=== PATIENT | female | born 1955 | race Hispanic/Latino ===

== ENCOUNTER → 2019-04-30 | Emergency (ER) | payer OTHER, MEDICARE ==
[~2019-04-30] MED LIST: Iopamidol 370 76% 100 ML VIAL ONE
[2019-04-30 10:18] LABS: #Basophils 0.1 thou/uL (0.0-0.2); #Eosinphils 0.1 thou/uL (0.0-0.7); #Lymphocytes 1.3 thou/uL (1.20-3.40); #Monocytes 0.4 thou/uL (0.11-0.59); #Neutrophils 4.1 thou/uL (1.40-6.50); %Basophils 0.9 % (0.0-1.0); %Eosinophils 1.4 % (0.0-10.0); %Lymphocytes 21.3 % (21.0-51.0); %Monocytes 6.8 % (0.0-10.0); %Neutrophils 69.6 % (42.0-75.0); Hemoglobin 13.9 g/dL (12.0-16.0); Mean Corpuscular HGB CONC 32.5 g/dL (32.0-36.0); Mean Corpuscular Volume 89.2 fL (78.0-98.0); Mean Platelet Volume 6.7 fL (7.4-10.4); Platelet Count 289 thou/uL (130-400); RBC Distribution Width 12.6 % (11.5-14.5); White Blood Cell (WBC) Count 5.9 thou/uL (4.8-10.8)
[2019-04-30 10:23] LABS: Base Excess-Venous 3.5 mmol/L (-2.0 to 3.0); Bicarbonate (HCO3v) 27.8 mmol/L (22.0-28.0); CO2 Tension (PvCO2) 40.1 mmHg (40.0-50.0); Calcium, Ionized 1.08 mmol/L (See Comments:); Chloride 98 mmol/L (98-107); Hemoglobin - Calc 15.8 g/dL (12.0-16.0); Sodium 134 mmol/L (138-145)
[2019-04-30 10:28] LABS: ALT (SGPT) 29 U/L (8-55); AST (SGOT) 25 U/L (5-34); Albumin 3.7 g/dL (3.4-4.8); Alkaline Phosphatase 304 U/L (40-110); Anion Gap 18 mmol/L (10-20); BUN (Urea Nitrogen) 12 mg/dL (9.8-20.1); Bilirubin, Total 0.9 mg/dL (0.2-1.2); Calc. Creatinine Clearance 0 mL/min (70-130); Calcium 9.8 mg/dL (7.8-10.44); Carbon Dioxide 25 mmol/L (23-31); Chloride 95 mmol/L (98-107); Estimated GFR-MDRD 51; Globulin 4.4 g/dL (2.4-3.5); Glucose 389 mg/dL (80-115); Potassium 4.1 mmol/L (3.5-5.1); Protein, Total 8.1 g/dL (6.0-8.3); Sodium 134 mmol/L (136-145)
--- NOTE | 2019-04-30 19:54 | CT ---
CT ANGIO OF THE CHEST: 04/30/19 Comparison is made with an 05/20/18 study. Axial slices were acquired after a bolus of IV contrast. Oblique MIP reformation and coronal images t hrough the chest were then obtained. The patient has known lung cancer. The anterior posterior dimension of the right paratracheal mass at the level of the durga is about 3.4 cm today, compared to 3.1 cm on the prior scan. There does appe ar to be some tumor or debris within the right main bronchus itself. The superior inferior extent of the mass is about 6.5 cm. There is very good opacification of the pulmonary arterial system. No filling defects were seen to paz ggest emboli at this time. Vessels going to portions of the right upper lobe are quite crowded as the re is partial atelectasis of this lobe. There is no sign of aortic aneurysm or dissection. Both coron makenna arteries fill. There is no sign of pericardial effusion. The aerated portions of the lungs was c lear. There are no effusions. No gross areas of bony destruction were appreciated. Scans into the upper abdomen show a portion of the liver which has multiple masses within it, as befo re. There is some sort of drainage tube present in the liver with a small amount of air in the biliar y tree. One of the larger masses in the central portion of the right lobe measures about 5.9 cm in si ze. Overall, the size of the masses seem slightly bigger than on the 2018 scan. IMPRESSION: 1. No evidence of pulmonary embolism. 2. Size of right paratracheal mass is only slightly larger in AP diameter since the last scan. 3. Hepatic metastases seem somewhat larger. 4. Some tumor or debris is noted within the right main bronchus. Findings discussed with Dr. Hernandez at 1109 on 04/30/19. POS: HOME
--- NOTE | 2019-04-30 19:57 | RAD ---
CHEST TWO VIEWS: 04/30/19 Comparison is made with the 03/12/19 study. The heart size remains normal. Elevation of the right hemidiaphragm is slightly greater than before. There seems to be a little more volume loss on the right side than previously. The thickness of densi ty in the right paratracheal region where the patient has a known mass seems slightly greater than february study. IMPRESSION: Small changes since February. No acute infiltrates. POS: HOME
== END ==
LOC: BURERS 09:38
DX: R04.2 Hemoptysis (principal); I10 Essential (primary) hypertension; E11.9 Type 2 diabetes mellitus without complications; Z79.899 Other long term (current) drug therapy; Z79.84 Long term (current) use of oral hypoglycemic drugs
CPT/HCPCS: 71046; 71275; 80053; 82330; 82435; 82803; 83880; 84132; 84295; 84484; 85014; 85025; 85379; 93005; Q9967

== ENCOUNTER 2019-06-21 11:00 | Emergency (ER) | payer OTHER, MEDICARE ==
[2019-06-21] MEDS ORDERED: methylPREDNISolone Sod Succ/PF 125 MG/2 ML VIAL ONE (11:23)
[2019-06-21 11:42] LABS: #Basophils 0.1 thou/uL (0.0-0.2); #Monocytes 0.3 thou/uL (0.11-0.59); #Neutrophils 4.5 thou/uL (1.40-6.50); %Basophils 0.8 % (0.0-1.0); %Eosinophils 0.8 % (0.0-10.0); %Lymphocytes 17.3 % (21.0-51.0); %Monocytes 5.1 % (0.0-10.0); %Neutrophils 75.9 % (42.0-75.0); Hemoglobin 13.8 g/dL (12.0-16.0); Mean Corpuscular HGB CONC 31.5 g/dL (32.0-36.0); Mean Corpuscular Hemoglobin 28.5 pg (27.0-31.0); Mean Corpuscular Volume 90.5 fL (78.0-98.0); Mean Platelet Volume 7.5 fL (7.4-10.4); Platelet Count 300 thou/uL (130-400); RBC Distribution Width 13.1 % (11.5-14.5); Red Blood Cell (RBC) Count 4.84 mill/uL (4.20-5.40); White Blood Cell (WBC) Count 5.9 thou/uL (4.8-10.8)
[2019-06-21 11:59] LABS: ALT (SGPT) 27 U/L (8-55); AST (SGOT) 34 U/L (5-34); Albumin 3.7 g/dL (3.4-4.8); Alkaline Phosphatase 305 U/L (40-110); Anion Gap 20 mmol/L (10-20); BUN (Urea Nitrogen) 8 mg/dL (9.8-20.1); Bilirubin, Total 1.4 mg/dL (0.2-1.2); Calc. Creatinine Clearance 0 mL/min (70-130); Carbon Dioxide 23 mmol/L (23-31); Chloride 90 mmol/L (98-107); Estimated GFR-MDRD 50; Glucose 527 mg/dL (80-115); Potassium 4.7 mmol/L (3.5-5.1); Protein, Total 8.7 g/dL (6.0-8.3); Sodium 128 mmol/L (136-145)
[2019-06-21] MEDS ORDERED: Insulin Regular 300 UNITS/3 ML VIAL ONE (12:22)
--- NOTE | 2019-06-21 12:27 | CT ---
EXAM: CTA of the chest HISTORY: Shortness of breath for one month; malignant neoplasm of the right lung. COMPARISON: 04/30/2019 TECHNIQUE: Multiple contiguous axial images were obtained a CTA of the chest with contrast per pulmon makenna embolism protocol. 3-D oblique MIP reformats and direct coronal reformats were performed. FINDINGS: HEART: Normal in size without focal cardiac abnormality. PULMONARY ARTERIES: Normal in caliber without filling defects to suggest pulmonary emboli. MEDIASTINUM: No hilar or mediastinal lymphadenopathy. LUNGS: There is a mass causing significant narrowing of the right mainstem bronchus. This mass extend s along the right superior mediastinum and there is adjacent atelectasis. Calcifications are associated with the mass. The mass measures 4.4 x 4.3 x 2.5 cm in size. PLEURAL SPACE: No pleural effusion or pneumothorax. CHEST WALL SOFT TISSUES: Unremarkable VISUALIZED OSSEOUS STRUCTURES: Degenerative changes in the spine. VISUALIZED SUBDIAPHRAGMATIC STRUCTURES: Scattered masses in the liver likely represent metastatic dis ease. The patient has a biliary stent. IMPRESSION: 1. No evidence of pulmonary thromboembolism 2. Hepatic metastases 3. Right hilar mass extending into the right mainstem bronchus.
[2019-06-21] MEDS ORDERED: Iopamidol 370 76% 100 ML VIAL ONE (13:52)
== END 2019-06-21 15:39 | disposition home or self-care (01) ==
LOC: BURERS 11:00
DX: R06.00 Dyspnea, unspecified (principal); E11.65 Type 2 diabetes mellitus with hyperglycemia; R22.2 Localized swelling, mass and lump, trunk; I10 Essential (primary) hypertension; Z79.84 Long term (current) use of oral hypoglycemic drugs
CPT/HCPCS: 36415; 36416; 71275; 80053; 83605; 83880; 84443; 84484; 85025; 93005; 96361; 96374; 96375; 96376; J1815; J2930; J7620; Q9967

== ENCOUNTER 2020-06-03 18:06 | Emergency (ER) | payer OTHER, MEDICARE ==
[2020-06-03 18:42] LABS: #Lymphocytes 0.5 thou/uL (1.20-3.40); #Monocytes 0.4 thou/uL (0.11-0.59); #Neutrophils 11.9 thou/uL (1.40-6.50); %Basophils 0.3 % (0.0-1.0); %Eosinophils 0.1 % (0.0-10.0); %Lymphocytes 3.7 % (21.0-51.0); %Monocytes 3.1 % (0.0-10.0); %Neutrophils 92.8 % (42.0-75.0); Mean Corpuscular HGB CONC 31.4 g/dL (32.0-36.0); Mean Corpuscular Hemoglobin 28.7 pg (27.0-31.0); Mean Corpuscular Volume 91.4 fL (78.0-98.0); Mean Platelet Volume 6.7 fL (7.4-10.4); Platelet Count 272 thou/uL (130-400); RBC Distribution Width 15.2 % (11.5-14.5); Red Blood Cell (RBC) Count 3.14 mill/uL (4.20-5.40); White Blood Cell (WBC) Count 12.8 thou/uL (4.8-10.8)
[2020-06-03 18:56] LABS: ALT (SGPT) 27 U/L (8-55); AST (SGOT) 28 U/L (5-34); Albumin 2.7 g/dL (3.4-4.8); Alkaline Phosphatase 483 U/L (40-110); Anion Gap 18 mmol/L (10-20); BUN (Urea Nitrogen) 27 mg/dL (9.8-20.1); Bilirubin, Total 1.8 mg/dL (0.2-1.2); CK (CPK) 47 U/L (29-168); Calc. Creatinine Clearance 0 mL/min (70-130); Calcium 9.2 mg/dL (7.8-10.44); Carbon Dioxide 25 mmol/L (23-31); Chloride 94 mmol/L (98-107); Globulin 6.3 g/dL (2.4-3.5); Glucose 488 mg/dL (80-115); Potassium 3.5 mmol/L (3.5-5.1); Sodium 133 mmol/L (136-145)
[2020-06-03 19:13] LABS: CKMB 1.9 ng/mL (0-6.6)
[2020-06-03] MEDS ORDERED: Aspirin Chewable 81 MG TAB ONE (19:22)
[2020-06-03] MEDS ORDERED: INSULIN REGULAR IN 0.9 % NACL 100 UNIT/100 ML BAG ONE (19:22)
[2020-06-03] MEDS ORDERED: Enoxaparin Sodium 100 MG/ML SYRINGE ONE (20:09)
--- NOTE | 2020-06-03 20:27 | RAD ---
RIGHT FEMUR 06/03/20 AP and lateral views are provided. No fracture or area of bony destruction was seen. The hip joint is normal in width. There may be some minor medial joint space narrowing in the knee. IMPRESSION: No significant finding. POS: HOME
--- NOTE | 2020-06-03 20:29 | RAD ---
LEFT FEMUR 06/03/20 AP and lateral views are provided following trauma. No fracture or area of bony destruction was seen. The hip joint is normal in width and the knee joint shows only minimal medial joint space narrowing and minimal osteophytes. IMPRESSION: No significant finding. POS: HOME
--- NOTE | 2020-06-03 21:09 | CT ---
CT OF THE CERVICAL SPINE 06/03/[address] of the cervical spine was performed. The patient has had recent trauma and there is also a history of lung cancer. No fracture, dislocation, or soft tissue swelling was seen. There is no area of bony destruction. Min or disc space narrowing at C5-C6 is present along with some very minimal anterior osteophytes. There is minor foraminal narrowing on the left at C2-C3 but the other foramina are patent and there is no s ign of central canal stenosis. There may be a little minor central bulging of the C4-C5 disc. The low est slices shows an area of thickening in the right lung apex medially. This has been present on othe r recent chest CT scans associated with her known neoplastic disease of the chest. IMPRESSION: No acute traumatic findings. Preliminary report called to Estela in ER at 1851 on 06/03/20. POS: HOME
--- NOTE | 2020-06-03 21:29 | RAD ---
PORTABLE CHEST 06/03/20 Comparison is made with a 12/12/19 study. I also reviewed a 04/21/20 CT of the chest. There has been improvement in the right paratracheal density since the November study. Part of that densi ty was atelectasis and part was tumor. It is actually much smaller on today's exam. Elevation of the right hemidiaphragm is due to volume loss. It is actually the same or slightly improved from before. The left lung is clear. The heart is normal in size. There is no signs of effusion or pneumothorax. N o gross fractures were identified. IMPRESSION: Chronic changes but no acute findings. The appearance of the chest is actually substantially improved compared to last November. POS: HOME
== END 2020-06-03 20:48 | disposition short-term general hospital (02) ==
LOC: BURERS 18:06
DX: S16.1XXA Strain of muscle, fascia and tendon at neck level, initial encounter (principal); S70.12XA Contusion of left thigh, initial encounter; S70.11XA Contusion of right thigh, initial encounter; I21.4 Non-ST elevation (NSTEMI) myocardial infarction; E11.65 Type 2 diabetes mellitus with hyperglycemia; I10 Essential (primary) hypertension; Z79.84 Long term (current) use of oral hypoglycemic drugs; Z79.899 Other long term (current) drug therapy; W18.30XA Fall on same level, unspecified, initial encounter
CPT/HCPCS: 71045; 72125; 80053; 82550; 82553; 83605; 83880; 84484; 85025; 93005; 94760; 96372; 96374; J1650

== ENCOUNTER 2020-06-09 15:19 | Inpatient (IN) | payer OTHER, MEDICARE ==
[2020-06-09] MEDS ORDERED: Nitroglycerin 0.4 MG TAB (25 Tab Bottle) SL PRN (19:31)
[2020-06-09] MEDS: HYDROcodone/Acetaminophen 5/325 mg Tablet PO PRN (21:33)
[2020-06-09] MEDS: metFORMIN 500 MG TAB PO SCH (21:33)
[2020-06-10] MEDS: HYDROcodone/Acetaminophen 5/325 mg Tablet PO PRN ×3 (03:10→20:36)
[2020-06-10] MEDS: Ibuprofen 800 MG TAB PO PRN ×2 (06:26→23:51)
[2020-06-10] MEDS ORDERED: Polyethylene Glycol 3350 17 GM Packet PO PRN (07:23)
[2020-06-10] MEDS ORDERED: Ondansetron ODT 4 MG TAB PO PRN (07:23)
[2020-06-10] MEDS: Losartan Potassium 50 MG TAB PO SCH (09:00)
[2020-06-10] MEDS: Multivit, Therapeutic 1 TAB PO SCH (09:04)
[2020-06-10] MEDS: metFORMIN 500 MG TAB PO SCH ×3 (09:04→20:33)
[2020-06-10] MEDS: Carvedilol 3.125 MG TAB PO SCH ×2 (09:05→17:14)
[2020-06-10] MEDS: Folic Acid 1 MG TAB PO SCH (09:05)
[2020-06-10] MEDS: Saccharomyces boulardii 250 MG CAP PO SCH (09:05)
[2020-06-10] MEDS: Cyanocobalamin (Vitamin B-12) 1,000 MCG TAB PO SCH (09:05)
[2020-06-10] MEDS: Aspirin 81 mg Enteric Coated Tablet PO SCH (09:10)
[2020-06-10] MEDS ORDERED: Dextrose 5% in Water 1,000 ML IV PRN (18:00)
[2020-06-10] MEDS ORDERED: Dextrose 50% Abboject 50 ML SYRINGE IVP PRN (18:00)
[2020-06-10] MEDS: HumaLOG 300 UNITS/3 ML VIAL SC PRN (18:18)
[2020-06-10 18:30] LABS: Hemoglobin 8.1 g/dL (12.0-16.0); Platelet Count 271 thou/uL (130-400)
[2020-06-10 18:45] LABS: Calc. Creatinine Clearance 76 mL/min (70-130)
[2020-06-10] MEDS: Enoxaparin Sodium 30 MG/0.3 ML SYRINGE SC SCH (20:33)
[2020-06-11 05:07] LABS: #Eosinphils 0.1 thou/uL (0.0-0.7); #Lymphocytes 0.8 thou/uL (1.20-3.40); #Monocytes 0.4 thou/uL (0.11-0.59); #Neutrophils 5.3 thou/uL (1.40-6.50); %Basophils 0.7 % (0.0-1.0); %Eosinophils 1.4 % (0.0-10.0); %Lymphocytes 12.4 % (21.0-51.0); %Monocytes 5.3 % (0.0-10.0); %Neutrophils 80.3 % (42.0-75.0); Hemoglobin 7.6 g/dL (12.0-16.0); Mean Corpuscular HGB CONC 30.1 g/dL (32.0-36.0); Mean Corpuscular Hemoglobin 28.1 pg (27.0-31.0); Mean Corpuscular Volume 93.5 fL (78.0-98.0); Mean Platelet Volume 6.1 fL (7.4-10.4); Platelet Count 270 thou/uL (130-400); RBC Distribution Width 16.9 % (11.5-14.5); White Blood Cell (WBC) Count 6.6 thou/uL (4.8-10.8)
[2020-06-11 05:23] LABS: ALT (SGPT) 16 U/L (8-55); AST (SGOT) 18 U/L (5-34); Albumin 2.1 g/dL (3.4-4.8); Alkaline Phosphatase 497 U/L (40-110); Anion Gap 14 mmol/L (10-20); BUN (Urea Nitrogen) 6 mg/dL (9.8-20.1); Bilirubin, Total 0.9 mg/dL (0.2-1.2); Calc. Creatinine Clearance 81 mL/min (70-130); Calcium 7.5 mg/dL (7.8-10.44); Carbon Dioxide 25 mmol/L (23-31); Chloride 101 mmol/L (98-107); Globulin 5.2 g/dL (2.4-3.5); Glucose 117 mg/dL (80-115); Potassium 3.7 mmol/L (3.5-5.1); Protein, Total 7.3 g/dL (6.0-8.3); Sodium 136 mmol/L (136-145)
[2020-06-11] MEDS: HYDROcodone/Acetaminophen 5/325 mg Tablet PO PRN (07:49)
[2020-06-11] MEDS: Multivit, Therapeutic 1 TAB PO SCH (07:51)
[2020-06-11] MEDS: Saccharomyces boulardii 250 MG CAP PO SCH (07:51)
[2020-06-11] MEDS: Aspirin 81 mg Enteric Coated Tablet PO SCH (07:51)
[2020-06-11] MEDS: Carvedilol 3.125 MG TAB PO SCH ×2 (07:51→17:44)
[2020-06-11] MEDS: Cyanocobalamin (Vitamin B-12) 1,000 MCG TAB PO SCH (07:52)
[2020-06-11] MEDS: Folic Acid 1 MG TAB PO SCH (07:52)
[2020-06-11] MEDS: metFORMIN 500 MG TAB PO SCH ×3 (07:52→20:02)
[2020-06-11] MEDS: Losartan Potassium 50 MG TAB PO SCH (07:52)
[2020-06-11] MEDS: HumaLOG 300 UNITS/3 ML VIAL SC PRN ×2 (12:55→17:44)
[2020-06-11] MEDS: Ibuprofen 800 MG TAB PO PRN (15:56)
[2020-06-11] MEDS: Enoxaparin Sodium 30 MG/0.3 ML SYRINGE SC SCH (20:02)
[2020-06-12] MEDS: HYDROcodone/Acetaminophen 5/325 mg Tablet PO PRN ×2 (03:05→17:39)
[2020-06-12] MEDS: Ibuprofen 800 MG TAB PO PRN ×2 (05:09→22:13)
[2020-06-12 05:26] LABS: Hemoglobin 7.9 g/dL (12.0-16.0); Platelet Count 203 thou/uL (130-400)
[2020-06-12 05:30] LABS: Calc. Creatinine Clearance 82 mL/min (70-130)
[2020-06-12] MEDS: Multivit, Therapeutic 1 TAB PO SCH (09:09)
[2020-06-12] MEDS: Folic Acid 1 MG TAB PO SCH (09:09)
[2020-06-12] MEDS: Carvedilol 3.125 MG TAB PO SCH ×2 (09:09→16:21)
[2020-06-12] MEDS: Aspirin 81 mg Enteric Coated Tablet PO SCH (09:09)
[2020-06-12] MEDS: Cyanocobalamin (Vitamin B-12) 1,000 MCG TAB PO SCH (09:10)
[2020-06-12] MEDS: Losartan Potassium 50 MG TAB PO SCH (09:10)
[2020-06-12] MEDS: metFORMIN 500 MG TAB PO SCH ×3 (09:10→20:19)
[2020-06-12] MEDS: Saccharomyces boulardii 250 MG CAP PO SCH (09:10)
[2020-06-12] MEDS: HumaLOG 300 UNITS/3 ML VIAL SC PRN ×2 (12:23→17:39)
[2020-06-12] MEDS ORDERED: Furosemide 20 MG TAB PO SCH (15:00)
[2020-06-12] MEDS: Enoxaparin Sodium 30 MG/0.3 ML SYRINGE SC SCH (20:19)
[2020-06-13] MEDS: Multivit, Therapeutic 1 TAB PO SCH (08:44)
[2020-06-13] MEDS: Folic Acid 1 MG TAB PO SCH (08:44)
[2020-06-13] MEDS: Saccharomyces boulardii 250 MG CAP PO SCH (08:44)
[2020-06-13] MEDS: Cyanocobalamin (Vitamin B-12) 1,000 MCG TAB PO SCH (08:44)
[2020-06-13] MEDS: metFORMIN 500 MG TAB PO SCH ×3 (08:44→21:02)
[2020-06-13] MEDS: Carvedilol 3.125 MG TAB PO SCH ×2 (08:44→17:24)
[2020-06-13] MEDS: Aspirin 81 mg Enteric Coated Tablet PO SCH (08:44)
[2020-06-13] MEDS: Furosemide 20 MG TAB PO SCH (08:45)
[2020-06-13] MEDS: Losartan Potassium 50 MG TAB PO SCH (08:45)
[2020-06-13] MEDS: HYDROcodone/Acetaminophen 5/325 mg Tablet PO PRN (08:50)
[2020-06-13] MEDS: HumaLOG 300 UNITS/3 ML VIAL SC PRN ×2 (12:47→17:24)
[2020-06-13] MEDS: Ibuprofen 800 MG TAB PO PRN (15:21)
[2020-06-13] MEDS: Enoxaparin Sodium 30 MG/0.3 ML SYRINGE SC SCH (21:02)
[2020-06-14] MEDS: HYDROcodone/Acetaminophen 5/325 mg Tablet PO PRN (04:54)
[2020-06-14 06:17] LABS: Hemoglobin 8.4 g/dL (12.0-16.0); Platelet Count 307 thou/uL (130-400)
[2020-06-14 06:23] LABS: Calc. Creatinine Clearance 77 mL/min (70-130)
[2020-06-14] MEDS: Furosemide 20 MG TAB PO SCH (09:13)
[2020-06-14] MEDS: Aspirin 81 mg Enteric Coated Tablet PO SCH (09:13)
[2020-06-14] MEDS: Saccharomyces boulardii 250 MG CAP PO SCH (09:13)
[2020-06-14] MEDS: Cyanocobalamin (Vitamin B-12) 1,000 MCG TAB PO SCH (09:13)
[2020-06-14] MEDS: Folic Acid 1 MG TAB PO SCH (09:13)
[2020-06-14] MEDS: Multivit, Therapeutic 1 TAB PO SCH (09:13)
[2020-06-14] MEDS: Losartan Potassium 50 MG TAB PO SCH (09:14)
[2020-06-14] MEDS: Carvedilol 3.125 MG TAB PO SCH ×2 (09:14→16:41)
[2020-06-14] MEDS: metFORMIN 500 MG TAB PO SCH ×3 (09:14→20:53)
[2020-06-14] MEDS: HumaLOG 300 UNITS/3 ML VIAL SC PRN ×2 (12:31→16:40)
[2020-06-14] MEDS: Ibuprofen 800 MG TAB PO PRN (15:29)
[2020-06-14] MEDS: Enoxaparin Sodium 30 MG/0.3 ML SYRINGE SC SCH (20:53)
[2020-06-15] MEDS: Ibuprofen 800 MG TAB PO PRN ×2 (04:18→16:15)
[2020-06-15] MEDS: Losartan Potassium 50 MG TAB PO SCH (09:25)
[2020-06-15] MEDS: Multivit, Therapeutic 1 TAB PO SCH (09:25)
[2020-06-15] MEDS: Saccharomyces boulardii 250 MG CAP PO SCH (09:25)
[2020-06-15] MEDS: Folic Acid 1 MG TAB PO SCH (09:25)
[2020-06-15] MEDS: Furosemide 20 MG TAB PO SCH (09:26)
[2020-06-15] MEDS: Carvedilol 3.125 MG TAB PO SCH ×2 (09:26→16:16)
[2020-06-15] MEDS: Aspirin 81 mg Enteric Coated Tablet PO SCH (09:26)
[2020-06-15] MEDS: metFORMIN 500 MG TAB PO SCH ×3 (09:26→21:31)
[2020-06-15] MEDS: Cyanocobalamin (Vitamin B-12) 1,000 MCG TAB PO SCH (09:27)
[2020-06-15] MEDS: HumaLOG 300 UNITS/3 ML VIAL SC PRN ×3 (12:44→21:31)
[2020-06-15 15:21] VITALS: BMI 23.0
[2020-06-15] MEDS ORDERED: Ibuprofen 800 MG TAB PO PRN (17:19)
[2020-06-15] MEDS: Enoxaparin Sodium 30 MG/0.3 ML SYRINGE SC SCH (21:32)
[2020-06-16 05:48] LABS: Hemoglobin 7.7 g/dL (12.0-16.0); Platelet Count 292 thou/uL (130-400)
[2020-06-16 06:44] LABS: Calc. Creatinine Clearance 73 mL/min (70-130)
[2020-06-16] MEDS: Losartan Potassium 50 MG TAB PO SCH (08:54)
[2020-06-16] MEDS: metFORMIN 500 MG TAB PO SCH ×3 (08:54→20:56)
[2020-06-16] MEDS: Saccharomyces boulardii 250 MG CAP PO SCH (08:54)
[2020-06-16] MEDS: Aspirin 81 mg Enteric Coated Tablet PO SCH (08:54)
[2020-06-16] MEDS: Cyanocobalamin (Vitamin B-12) 1,000 MCG TAB PO SCH (08:55)
[2020-06-16] MEDS: Multivit, Therapeutic 1 TAB PO SCH (08:55)
[2020-06-16] MEDS: Folic Acid 1 MG TAB PO SCH (08:55)
[2020-06-16] MEDS: Carvedilol 3.125 MG TAB PO SCH ×2 (08:55→16:26)
[2020-06-16] MEDS: Furosemide 20 MG TAB PO SCH (08:55)
[2020-06-16] MEDS: HumaLOG 300 UNITS/3 ML VIAL SC PRN ×3 (11:58→20:57)
[2020-06-16] MEDS: HYDROcodone/Acetaminophen 5/325 mg Tablet PO PRN ×2 (13:51→23:17)
[2020-06-16] MEDS ORDERED: Promethazine DM 6.25-15mg/5ml 120 ML BOT PO PRN (15:18)
[2020-06-16] MEDS ORDERED: Guaifenesin DM 100-10/5 ML UDCUP PO PRN (17:54)
[2020-06-16] MEDS: Enoxaparin Sodium 30 MG/0.3 ML SYRINGE SC SCH (20:56)
[2020-06-16] MEDS: guaiFENesin/DM ER PO SCH (21:04)
[2020-06-17] MEDS: metFORMIN 500 MG TAB PO SCH ×3 (09:07→20:18)
[2020-06-17] MEDS: Aspirin 81 mg Enteric Coated Tablet PO SCH (09:07)
[2020-06-17] MEDS: Saccharomyces boulardii 250 MG CAP PO SCH (09:07)
[2020-06-17] MEDS: Losartan Potassium 50 MG TAB PO SCH (09:08)
[2020-06-17] MEDS: Multivit, Therapeutic 1 TAB PO SCH (09:08)
[2020-06-17] MEDS: Folic Acid 1 MG TAB PO SCH (09:08)
[2020-06-17] MEDS: Carvedilol 3.125 MG TAB PO SCH ×2 (09:08→16:06)
[2020-06-17] MEDS: Cyanocobalamin (Vitamin B-12) 1,000 MCG TAB PO SCH (09:08)
[2020-06-17] MEDS: Furosemide 20 MG TAB PO SCH (09:08)
[2020-06-17] MEDS: guaiFENesin/DM ER PO SCH ×2 (09:08→20:19)
[2020-06-17] MEDS ORDERED: CHLORASEPTIC SPRAY PO PRN (10:19)
[2020-06-17] MEDS: HumaLOG 300 UNITS/3 ML VIAL SC PRN ×2 (12:14→17:17)
[2020-06-17] MEDS: HYDROcodone/Acetaminophen 5/325 mg Tablet PO PRN (20:17)
[2020-06-17] MEDS: Enoxaparin Sodium 30 MG/0.3 ML SYRINGE SC SCH (20:19)
[2020-06-18 05:11] LABS: Hemoglobin 7.8 g/dL (12.0-16.0); Platelet Count 295 thou/uL (130-400)
[2020-06-18] MEDS: HYDROcodone/Acetaminophen 5/325 mg Tablet PO PRN ×2 (05:19→20:46)
[2020-06-18] MEDS: Saccharomyces boulardii 250 MG CAP PO SCH (08:53)
[2020-06-18] MEDS: Multivit, Therapeutic 1 TAB PO SCH (08:54)
[2020-06-18] MEDS: Aspirin 81 mg Enteric Coated Tablet PO SCH (08:54)
[2020-06-18] MEDS: Furosemide 20 MG TAB PO SCH (08:54)
[2020-06-18] MEDS: Losartan Potassium 50 MG TAB PO SCH (08:54)
[2020-06-18] MEDS: Cyanocobalamin (Vitamin B-12) 1,000 MCG TAB PO SCH (08:55)
[2020-06-18] MEDS: Folic Acid 1 MG TAB PO SCH (08:55)
[2020-06-18] MEDS: Carvedilol 3.125 MG TAB PO SCH ×2 (08:55→16:52)
[2020-06-18] MEDS: metFORMIN 500 MG TAB PO SCH ×3 (08:55→20:47)
[2020-06-18] MEDS: guaiFENesin/DM ER PO SCH ×2 (08:56→20:48)
[2020-06-18] MEDS: HumaLOG 300 UNITS/3 ML VIAL SC PRN ×2 (12:54→17:14)
[2020-06-18] MEDS: Enoxaparin Sodium 30 MG/0.3 ML SYRINGE SC SCH (20:47)
[2020-06-19 06:08] VITALS: BP 134/84; TEMP 98.2
[2020-06-19] MEDS: Aspirin 81 mg Enteric Coated Tablet PO SCH (08:29)
[2020-06-19] MEDS: Carvedilol 3.125 MG TAB PO SCH (08:29)
[2020-06-19] MEDS: Multivit, Therapeutic 1 TAB PO SCH (08:29)
[2020-06-19] MEDS: Saccharomyces boulardii 250 MG CAP PO SCH (08:29)
[2020-06-19] MEDS: Furosemide 20 MG TAB PO SCH (08:30)
[2020-06-19] MEDS: Losartan Potassium 50 MG TAB PO SCH (08:30)
[2020-06-19] MEDS: metFORMIN 500 MG TAB PO SCH (08:30)
[2020-06-19] MEDS: Cyanocobalamin (Vitamin B-12) 1,000 MCG TAB PO SCH (08:31)
[2020-06-19] MEDS: guaiFENesin/DM ER PO SCH (08:32)
[2020-06-19] MEDS: Folic Acid 1 MG TAB PO SCH (08:35)
--- NOTE | 2020-06-21 07:46 | DIS ---
DATE OF ADMISSION: 06/09/2020 DATE OF DISCHARGE: 06/19/2020 ADMISSION DIAGNOSES: Metastatic lung cancer, physical deconditioning, sepsis. SECONDARY DIAGNOSES: Hypertension, type 2 diabetes mellitus. PROCEDURES: None. HOSPITAL COURSE: This is a 65-year-old female, patient of Dr. Christin Mckeon, who transitioned to our [facility] facility to participate with physical therapy and occupational therapy and complete a course of oral antibiotics. She has a history of metastatic lung cancer for which she has been treated by Dr. Abraham, Radiation Oncology, and has had adjuvant therapy via Dr. Quiroz. The patient had been developing progressive weakness resulting in falls at home, which prompted an evaluation in the emergency department. Evaluation there showed sinus tachycardia and nonspecific ST changes with slightly elevated troponin along with an elevated white blood cell count and left shift. The patient was diagnosed with sepsis and treated initially with broad-spectrum antibiotics. Eventually, this was tapered to an oral course of Levaquin, which she has completed at our facility. As for the patient's metastatic lung cancer, complications involving this include a large lesion and trapping of the right main stem bronchus involving blood vessels; due to this, she has very poor air movement to the right lung ulloa. She had transitioned to our facility to participate with PT and OT while putting chemo and radiation on hold for the time being. While at our facility, she was able to successfully improve upon her strength and conditioning. Her functional status has improved overall. She has remained on room air throughout her stay. At times, she does have a cough, which causes post-tussive emesis; otherwise, she has improved without setback. Due to the patient's improvement in functional status, she is now able to transition home where she will stay with family members and has been set up with outpatient therapy for continued care. DISPOSITION: The patient will be discharged home. She may follow up with her primary care provider in 1 week, Dr. Christin Mckeon. She may further follow up with her oncology providers, Dr. Abraham and Dr. Quiroz. She has been set up with outpatient PT and OT. DISCHARGE MEDICATIONS: One new medication will be alprazolam 0.25 mg b.i.d. p.r.n. She will resume her usual home medications which include: 1. Daily multivitamin. 2. Losartan 50 mg daily. 3. Metformin 500 mg t.i.d. 4. Hydrocodone 5/325 q.6 hours p.r.n. 5. Vitamin B12 of 1000 mcg p.o. daily. 6. Nitroglycerin 0.4 mg sublingual q.5 minutes p.r.n. up to 3 doses. 7. Folic acid 1 mg daily. 8. Carvedilol 3.125 mg b.i.d. 9. Aspirin 81 mg daily. Total time spent in preparation and discharge of this patient is greater than 30 minutes. Job ID: [id number] MTDD
== END 2020-06-19 10:40 | disposition home or self-care (01) | DRG 947 ==
LOC: BURMED 18:20
PROVIDERS: ADMIT Family Medicine; ATTEND Family Medicine
DX: R53.81 Other malaise (principal); A41.9 Sepsis, unspecified organism; C34.90 Malignant neoplasm of unspecified part of unspecified bronchus or lung; I10 Essential (primary) hypertension; E11.9 Type 2 diabetes mellitus without complications; Z79.82 Long term (current) use of aspirin; Z79.899 Other long term (current) drug therapy; Z79.84 Long term (current) use of oral hypoglycemic drugs
CPT/HCPCS: 36415; 36416; 80053; 82565; 85014; 85018; 85025; 85049; J1650

== ENCOUNTER 2020-08-10 17:14 | Inpatient (IN) | payer OTHER, MEDICARE ==
[2020-08-10] MEDS ORDERED: Ondansetron PF 4 MG/2 ML Vial ONE (17:39)
[2020-08-10] MEDS ORDERED: Morphine 4 MG/ML VIAL ONE (17:39)
[2020-08-10 17:54] LABS: #Basophils 0.1 thou/uL (0.0-0.2); #Lymphocytes 2.6 thou/uL (1.20-3.40); #Monocytes 0.8 thou/uL (0.11-0.59); #Neutrophils 8.2 thou/uL (1.40-6.50); %Eosinophils 0.3 % (0.0-10.0); %Lymphocytes 22.3 % (21.0-51.0); %Monocytes 6.8 % (0.0-10.0); %Neutrophils 69.6 % (42.0-75.0); Hemoglobin 13.3 g/dL (12.0-16.0); Mean Corpuscular HGB CONC 30.9 g/dL (32.0-36.0); Mean Corpuscular Hemoglobin 28.3 pg (27.0-31.0); Mean Corpuscular Volume 91.6 fL (78.0-98.0); Mean Platelet Volume 5.7 fL (7.4-10.4); Platelet Count 239 thou/uL (130-400); RBC Distribution Width 16.3 % (11.5-14.5); White Blood Cell (WBC) Count 11.7 thou/uL (4.8-10.8)
[2020-08-10 18:08] LABS: ALT (SGPT) 25 U/L (8-55); AST (SGOT) 27 U/L (5-34); Albumin 2.2 g/dL (3.4-4.8); Alkaline Phosphatase 298 U/L (40-110); Anion Gap 17 mmol/L (10-20); BUN (Urea Nitrogen) 9 mg/dL (9.8-20.1); Bilirubin, Total 0.7 mg/dL (0.2-1.2); Calc. Creatinine Clearance 0 mL/min (70-130); Calcium 8.4 mg/dL (7.8-10.44); Carbon Dioxide 21 mmol/L (23-31); Chloride 97 mmol/L (98-107); Globulin 7.4 g/dL (2.4-3.5); Glucose 224 mg/dL (80-115); Potassium 4.7 mmol/L (3.5-5.1); Protein, Total 9.6 g/dL (5.8-8.1); Sodium 130 mmol/L (136-145)
[2020-08-10 18:15] LABS: INR-International Normal Ratio 1.3; Prothrombin Time 16.7 sec (12.0-14.7)
[2020-08-10] MEDS ORDERED: Piperacillin/Tazobactam 4.5 GM VIAL ONE (18:54)
[2020-08-10] MEDS ORDERED: Sodium Chloride 0.9% 100 ML ONE (18:54)
--- NOTE | 2020-08-10 19:20 | CT ---
CT ANGIO OF THE CHEST: Date: 08-10-2020 Comparison: 06-05-2020 FINDINGS: CT angio of the chest showed excellent opacification of the pulmonary arteries. There were no interna l defects to suggest emboli. There is no sign of aortic aneurysm or dissection. The extensive tumor i n the right medial lung and hilum is noted as usual, as well as post obstructive pneumonitis througho ut the right lung. The right lung infiltrates have gotten somewhat worse than they were in May, but there is less pleural fluid here than before. The left lung remains clear. The patient has known hepatic metastases. Some of these seem a little more extensive than before, but the major finding is gas present in several of these, or at least one large one that is multiloculat ed. This was not present before. I would assume that this is tumor underlying necrosis and infection, presumably now with gas forming organisms. The spleen is normal in size. IMPRESSION: 1. No evidence of pulmonary embolism. The right pulmonary artery is significantly encased by karrie or, however. 2. Less pleural effusion on the right than before, but slightly more right lung infiltrate. 3. Gas seen in some hepatic low density areas. I am presuming that this is necrotic tumor that i s now turning into abscess, possibly with gas forming organisms. Findings discussed with Dr. Grady at 1843 on . POS: HOME
[2020-08-10 19:39] LABS: Bilirubin Negative (Negative); Blood, Urine Negative (Negative); Clarity Clear (Clear); Glucose, Urine (Dipstick) Negative (Negative); Ketone, Urine Negative (Negative); Leukocyte Negative (Negative); Nitrite Negative (Negative); Protein, Urine (Dipstick) 30 mg/dL (Neg-Trace); Urobilinogen 0.2 mg/dL (Less than 2)
[2020-08-10 19:44] LABS: Bacteria/HPF 1+ HPF (None Seen); RBC/HPF None Seen HPF (0-3); Squamous Epithelial None Seen HPF (0-3); WBC/HPF None Seen HPF (0-3)
[2020-08-10 20:45] VITALS: BMI 21.6
[2020-08-10] MEDS ORDERED: Albuterol Sulfate 2.5 mg/3 ml Neb NEB PRN (21:50)
[2020-08-10] MEDS ORDERED: ALPRAZolam 0.5 MG TAB PO PRN (21:50)
[2020-08-10] MEDS ORDERED: HYDROcodone/Acetaminophen 5/325 mg Tablet PO PRN (21:52)
[2020-08-10] MEDS ORDERED: Morphine 4 MG/ML VIAL SLOW IVP PRN (21:55)
[2020-08-10] MEDS ORDERED: Carvedilol 3.125 MG TAB PO SCH (22:00)
[2020-08-10] MEDS ORDERED: Ondansetron ODT 4 MG TAB SL PRN (22:00)
[2020-08-10] MEDS ORDERED: Ondansetron PF 4 MG/2 ML Vial IVP PRN (22:00)
[2020-08-10] MEDS ORDERED: Acetaminophen 325 MG TAB PO PRN (22:00)
[2020-08-10] MEDS: Piperacillin/Tazobactam 4.5 GM in Sodium Chloride 0.9% 100 ML IVPB SCH (23:53)
[2020-08-11] MEDS: HYDROcodone/Acetaminophen 5/325 mg Tablet PO PRN ×3 (00:04→17:46)
[2020-08-11 01:42] LABS: SARS-CoV-2 NAA Rapid Test Not Detected (NotDetected)
[2020-08-11] MEDS: Piperacillin/Tazobactam 4.5 GM in Sodium Chloride 0.9% 100 ML IVPB SCH ×4 (05:50→23:00)
[2020-08-11] MEDS ORDERED: metFORMIN 500 MG TAB PO SCH (08:00)
[2020-08-11] MEDS ORDERED: Carvedilol 3.125 MG TAB PO SCH (08:00)
[2020-08-11] MEDS: Vancomycin HCl 750 MG in Sodium Chloride 0.9% 250 ML 250 ML IVPB SCH ×2 (08:46→20:45)
[2020-08-11] MEDS ORDERED: Cyanocobalamin (Vitamin B-12) 1,000 MCG TAB PO SCH (09:00)
[2020-08-11] MEDS ORDERED: Losartan Potassium 50 MG TAB PO SCH (09:00)
[2020-08-11] MEDS ORDERED: Folic Acid 1 MG TAB PO SCH (09:00)
[2020-08-11] MEDS ORDERED: Aspirin 81 mg Enteric Coated Tablet PO SCH (09:00)
[2020-08-11] MEDS ORDERED: Multivit, Therapeutic 1 TAB PO SCH (09:00)
[2020-08-11] MEDS ORDERED: Albuterol Sulfate 2.5 mg/3 ml Neb NEB PRN (10:07)
[2020-08-11] MEDS ORDERED: HYDROcodone/Acetaminophen 5/325 mg Tablet PO PRN (10:07)
[2020-08-11] MEDS ORDERED: Dextrose 50% Abboject 50 ML SYRINGE SLOW IVP PRN (10:11)
[2020-08-11] MEDS ORDERED: Dextrose 5% in Water 1,000 ML IV PRN (10:11)
[2020-08-11] MEDS: metFORMIN 500 MG TAB PO SCH ×2 (13:04→17:47)
[2020-08-11] MEDS: HumaLOG 300 UNITS/3 ML VIAL SC PRN ×2 (14:07→21:05)
[2020-08-11] MEDS: Carvedilol 3.125 MG TAB PO SCH (17:47)
[2020-08-11] MEDS ORDERED: cloNIDine 0.1 MG TAB PO PRN (18:47)
[2020-08-11] MEDS: Enoxaparin Sodium 40 MG/0.4 ML SYRINGE SC SCH (21:04)
[2020-08-12] MEDS: ALPRAZolam 0.5 MG TAB PO PRN ×2 (00:06→20:53)
[2020-08-12] MEDS: HYDROcodone/Acetaminophen 5/325 mg Tablet PO PRN ×3 (00:07→20:54)
[2020-08-12] MEDS: Piperacillin/Tazobactam 4.5 GM in Sodium Chloride 0.9% 100 ML IVPB SCH ×3 (05:06→18:25)
--- NOTE | 2020-08-12 05:25 | HP ---
CHIEF COMPLAINT: Shortness of breath and chest pain. HISTORY OF PRESENT ILLNESS: This is a 65-year-old female with underlying stage IV lung cancer with metastasis to the liver, who presented acutely to the [facility] Emergency Department last night with complaints of shortness of breath, chest pain, and hemoptysis. She denied having associated fever, chills, nausea, vomiting, or diarrhea. Workup in the emergency department revealed the patient to be tachypneic with an elevated blood pressure. Her lab work revealed leukocytosis with an elevated lactic acid level. Troponin and EKG were notably normal. Testing for influenza and COVID, were both negative. Imaging was concerning for a right lung infiltrate and developing hepatic abscesses. Blood and urine cultures were obtained and she was started empirically on vancomycin and Zosyn. She did not wish to transition to [facility] in [place] and prefers to receive treatment at our facility for the time being. PAST MEDICAL HISTORY: Includes hypertension, type 2 diabetes mellitus; stage IV lung cancer with metastasis to the liver, previously treated with radiation and most recently with chemotherapy via Dr. Quiroz. PAST SURGICAL HISTORY: Includes laparotomy with portion of liver resected. SOCIAL HISTORY: The patient is a nonsmoker with no EtOH or illicit drug use. ALLERGIES: NO KNOWN DRUG ALLERGIES. FAMILY HISTORY: Noncontributory. CURRENT MEDICATIONS: Include, 1. Metformin 500 mg b.i.d. 2. Albuterol sulfate nebulizer q.8 hours p.r.n. 3. Proventil inhaler as needed. 4. Amlodipine 2.5 mg daily. 5. Metoprolol tartrate 50 mg daily. REVIEW OF SYSTEMS: GENERAL: The patient reports fatigue. Denies fever. EARS, NOSE, AND THROAT: Denies sore throat, nasal drainage, or congestion. CARDIOVASCULAR: Complained of chest pain. RESPIRATORY: Complained of shortness of breath and cough. GASTROINTESTINAL: Denies abdominal pain, nausea, vomiting, diarrhea, or constipation. GENITOURINARY: Denies dysuria. MUSCULOSKELETAL: Complains of joint pain. DERM: Denies rash. NEUROLOGIC: Denies headache. LABORATORY DATA: Influenza and COVID, both negative. White blood cell count 11.7, hemoglobin 13.3, hematocrit 43.1, platelets 239. INR 1.3. Sodium 130, potassium 4.7, BUN 9, creatinine 0.73, GFR 80, glucose 224. Initial lactic acid 2.4, improved to 2.0 upon recheck. AST 27, ALT 25, alkaline phosphatase 298. Troponin 0.026. Urine negative for leukocyte esterase or nitrites. IMAGING DATA: 1. CTA of chest shows no evidence of pulmonary embolism. The right pulmonary artery is significantly encased by tumor, however. 2. Less pleural effusion on the right than before, but slightly more right lung infiltrate. 3. Gas seen in some hepatic low-density areas. I am presuming that this is necrotic tumor that is now turning into abscess possibly with gas-forming organisms. PHYSICAL EXAMINATION: VITAL SIGNS: Temperature is 97.8, pulse is 75, respiratory rate is 18, oxygen is 98% on room air, and blood pressure 144/86. GENERAL: The patient is alert and oriented, in no acute distress. HEAD, EYES, EARS, NOSE, AND THROAT: Normocephalic and atraumatic. Pupils are equal, round, and reactive to light. Extraocular muscles are intact bilaterally. Sclerae are clear. Moist mucous membranes. NECK: Supple without lymphadenopathy. CARDIOVASCULAR: Regular rate and rhythm. Normal S1 and S2. RESPIRATORY: Breath sounds diminished to the right side. No respiratory distress. ABDOMEN: Nontender to palpation. No rebound or guarding. EXTREMITIES: No clubbing, cyanosis, or edema. SKIN: No rashes. NEUROLOGIC: Nonfocal with cranial nerves 2 through 12 grossly intact. ASSESSMENT AND PLAN: 1. Community-acquired pneumonia. We will follow the patient's blood and urine cultures and trend her CBC. She has a mild leukocytosis at present. We will resume vancomycin and Zosyn with vancomycin to be titrated per pharmacy. The patient is at risk for further infection of the right lung secondary to underlying pathology to this area. 2. Liver abscess. This appears to be in the early stages per review of the CAT scan. We will continue broad-spectrum IV antibiotics and consider followup imaging. 3. Stage IV lung cancer with metastasis to the liver. The patient is status post radiation with most recently only presumed treatment with chemotherapy via Dr. Quiroz. 4. Hypertension. We will resume the patient's home blood pressure medications. 5. Type 2 diabetes mellitus. We will resume the patient's home metformin and add a Humalog sliding scale for improved glycemic control. 6. Hyponatremia. This is a chronic intermittent issue. We will trend the patient's labs and consider initiation of sodium chloride. 7. Code status is full. Job ID: [id number] MTDD
[2020-08-12 07:00] LABS: #Basophils 0.1 thou/uL (0.0-0.2); #Eosinphils 0.2 thou/uL (0.0-0.7); #Lymphocytes 1.8 thou/uL (1.20-3.40); #Monocytes 0.5 thou/uL (0.11-0.59); #Neutrophils 4.5 thou/uL (1.40-6.50); %Basophils 1.1 % (0.0-1.0); %Eosinophils 3.1 % (0.0-10.0); %Lymphocytes 25.2 % (21.0-51.0); %Monocytes 7.3 % (0.0-10.0); %Neutrophils 63.3 % (42.0-75.0); Hemoglobin 10.9 g/dL (12.0-16.0); Mean Corpuscular HGB CONC 31.5 g/dL (32.0-36.0); Mean Corpuscular Hemoglobin 29.1 pg (27.0-31.0); Mean Corpuscular Volume 92.2 fL (78.0-98.0); Mean Platelet Volume 5.7 fL (7.4-10.4); Platelet Count 181 thou/uL (130-400); RBC Distribution Width 16.1 % (11.5-14.5); Red Blood Cell (RBC) Count 3.74 mill/uL (4.20-5.40); White Blood Cell (WBC) Count 7.2 thou/uL (4.8-10.8)
[2020-08-12 07:16] LABS: ALT (SGPT) 18 U/L (8-55); AST (SGOT) 15 U/L (5-34); Albumin 1.8 g/dL (3.4-4.8); Alkaline Phosphatase 207 U/L (40-110); Anion Gap 12 mmol/L (10-20); BUN (Urea Nitrogen) 8 mg/dL (9.8-20.1); Bilirubin, Total 0.5 mg/dL (0.2-1.2); Calc. Creatinine Clearance 66 mL/min (70-130); Calcium 7.7 mg/dL (7.8-10.44); Carbon Dioxide 23 mmol/L (23-31); Chloride 104 mmol/L (98-107); Globulin 5.8 g/dL (2.4-3.5); Glucose 124 mg/dL (80-115); Protein, Total 7.6 g/dL (5.8-8.1); Sodium 135 mmol/L (136-145)
[2020-08-12 07:19] LABS: Vancomycin, Trough 12.1 ug/mL
[2020-08-12] MEDS: Carvedilol 3.125 MG TAB PO SCH ×2 (08:01→18:25)
[2020-08-12] MEDS: Aspirin 81 mg Enteric Coated Tablet PO SCH (08:02)
[2020-08-12] MEDS: Cyanocobalamin (Vitamin B-12) 1,000 MCG TAB PO SCH (08:02)
[2020-08-12] MEDS: metFORMIN 500 MG TAB PO SCH ×3 (08:02→18:25)
[2020-08-12] MEDS: Multivit, Therapeutic 1 TAB PO SCH (08:03)
[2020-08-12] MEDS: Folic Acid 1 MG TAB PO SCH (08:03)
[2020-08-12] MEDS: Losartan Potassium 50 MG TAB PO SCH (08:03)
[2020-08-12] MEDS: Vancomycin HCl 750 MG in Sodium Chloride 0.9% 250 ML 250 ML IVPB SCH ×2 (09:14→20:50)
[2020-08-12] MEDS ORDERED: Docusate Sodium 100 MG/10 ML UDCUP PO PRN (10:22)
[2020-08-12] MEDS ORDERED: Piperacillin/Tazobactam 4.5 GM VIAL ONE (18:46)
[2020-08-12] MEDS: Enoxaparin Sodium 40 MG/0.4 ML SYRINGE SC SCH (20:50)
[2020-08-12] MEDS ORDERED: Guaifenesin DM 100-10/5 ML UDCUP PO PRN (21:23)
[2020-08-12] MEDS: Guaifenesin DM 100-10/5 ML UDCUP PO PRN (21:42)
[2020-08-13] MEDS: Piperacillin/Tazobactam 4.5 GM in Sodium Chloride 0.9% 100 ML IVPB SCH ×5 (00:44→23:48)
[2020-08-13] MEDS: Cyanocobalamin (Vitamin B-12) 1,000 MCG TAB PO SCH (09:50)
[2020-08-13] MEDS: Carvedilol 3.125 MG TAB PO SCH ×2 (09:50→17:36)
[2020-08-13] MEDS: Polyethylene Glycol 3350 17 GM Packet PO SCH (09:50)
[2020-08-13] MEDS: Folic Acid 1 MG TAB PO SCH (09:50)
[2020-08-13] MEDS: metFORMIN 500 MG TAB PO SCH ×3 (09:50→17:35)
[2020-08-13] MEDS: Losartan Potassium 50 MG TAB PO SCH (09:51)
[2020-08-13] MEDS: Multivit, Therapeutic 1 TAB PO SCH (09:51)
[2020-08-13] MEDS: Aspirin 81 mg Enteric Coated Tablet PO SCH (09:51)
[2020-08-13] MEDS: Senokot S 8.6-50 MG TAB PO SCH (09:51)
[2020-08-13] MEDS: Vancomycin HCl 750 MG in Sodium Chloride 0.9% 250 ML 250 ML IVPB SCH ×2 (09:52→20:19)
[2020-08-13] MEDS: Guaifenesin DM 100-10/5 ML UDCUP PO PRN ×3 (10:16→23:51)
[2020-08-13] MEDS: HYDROcodone/Acetaminophen 5/325 mg Tablet PO PRN ×2 (12:52→23:51)
[2020-08-13 19:21] LABS: Vancomycin, Trough 13.2 ug/mL
[2020-08-13] MEDS: Enoxaparin Sodium 40 MG/0.4 ML SYRINGE SC SCH (20:20)
[2020-08-14] MEDS: Piperacillin/Tazobactam 4.5 GM in Sodium Chloride 0.9% 100 ML IVPB SCH ×2 (05:35→12:33)
[2020-08-14 05:55] VITALS: BP 130/79; TEMP 98.4
[2020-08-14] MEDS: Guaifenesin DM 100-10/5 ML UDCUP PO PRN (07:39)
[2020-08-14] MEDS: HYDROcodone/Acetaminophen 5/325 mg Tablet PO PRN (07:40)
[2020-08-14] MEDS: Vancomycin HCl 750 MG in Sodium Chloride 0.9% 250 ML 250 ML IVPB SCH (08:29)
[2020-08-14] MEDS: Folic Acid 1 MG TAB PO SCH (08:31)
[2020-08-14] MEDS: metFORMIN 500 MG TAB PO SCH ×2 (08:31→12:32)
[2020-08-14] MEDS: Cyanocobalamin (Vitamin B-12) 1,000 MCG TAB PO SCH (08:31)
[2020-08-14] MEDS: Multivit, Therapeutic 1 TAB PO SCH (08:31)
[2020-08-14] MEDS: Aspirin 81 mg Enteric Coated Tablet PO SCH (08:31)
[2020-08-14] MEDS: Losartan Potassium 50 MG TAB PO SCH (08:31)
[2020-08-14] MEDS: Carvedilol 3.125 MG TAB PO SCH (08:31)
[2020-08-14] MEDS: Polyethylene Glycol 3350 17 GM Packet PO SCH (08:37)
[2020-08-14] MEDS: Senokot S 8.6-50 MG TAB PO SCH (08:38)
[2020-08-14] MEDS: HumaLOG 300 UNITS/3 ML VIAL SC PRN (12:35)
--- NOTE | 2020-08-15 18:11 | DIS ---
DATE OF ADMISSION: 08/10/2020 DATE OF DISCHARGE: 08/14/2020 ADMISSION DIAGNOSES: Community-acquired pneumonia, liver abscess, stage IV lung cancer with metastasis to liver. SECONDARY DIAGNOSES: Hypertension, type 2 diabetes mellitus, and hyponatremia. PROCEDURES: CTA of chest on 08/10/2020 showed, 1. No evidence of pulmonary embolism. The right pulmonary artery is significantly encased by tumor, however. 2. Less pleural effusion on the right than before, but slightly more right lung infiltrate. 3. Gas seen in some hepatic low-density areas, presuming that this is necrotic tumor that is now turning into abscess, possibly with gas-forming organisms. HOSPITAL COURSE: This is a 65-year-old female with underlying stage IV lung cancer with metastasis to the liver, who presented to the [facility] Emergency Department with complaints of shortness of breath, chest pain, and hemoptysis. The patient's vitals were abnormal revealing tachypnea and uncontrolled hypertension. Her lab work revealed leukocytosis and an elevated lactic acid level. Her cardiac workup was reassuring. Testing for influenza and COVID were both negative. Imaging was concerning for a right lung infiltrate and developing hepatic abscess. Blood and urine cultures were obtained, and she was started empirically on vancomycin and Zosyn. The patient was admitted for further care via IV antibiotics. The patient's labs were trended, and her leukocytosis resolved. Her leukocytosis and lactic acid elevation both returned to within normal limits. She remained afebrile during her stay. Blood cultures returned showing no growth to date. The patient will likely remain at risk for further pulmonary infection secondary to the underlying pathology in the right lung ulloa. As for her treatment related to her imaging involving the lungs and liver, I will treat the patient for 10 additional days with Levaquin and Flagyl per the CT scan revealing concern for gas-forming organism specifically to the liver. At this time, the patient's vitals have completely normalized, and her lab work is reassuring as well. She is appropriate for discharge back to her home with further oral antibiotic therapy and plan to repeat CT scan in the next 7-10 days if possible. Of note, she cited no abdominal pain during her admission. DISPOSITION: The patient will discharge to her home and continue with outpatient therapy. She may follow up with myself in the clinic in 1 week. She is also to follow up with her oncologist, Dr. Quiroz, as scheduled. DISCHARGE MEDICATIONS: Two new medications will be Levaquin 500 mg p.o. daily x10 days and Flagyl 500 mg p.o. q.8 hours x10 days. One new other medication will be clonidine 0.1 mg twice a day as needed for blood pressures greater than 160/100. She is to resume her typical medications, otherwise, which include, 1. Metformin 500 mg q.8 hours. 2. Albuterol sulfate neb q.8 hours p.r.n. 3. Proventil inhaler as needed. 4. Amlodipine 2.5 mg daily. 5. Carvedilol 3.125 mg b.i.d. Other home medications include, 1. Alprazolam 0.25 mg b.i.d. p.r.n. 2. Aspirin 81 mg daily. 3. Vitamin B12 1000 mcg p.o. daily. 4. Folic acid 1 mg daily. 5. Etta 5/325 one tab q.6 hours p.r.n. 6. Losartan 50 mg daily. Total time spent in preparation of discharge of this patient greater than 30 minutes. Job ID: [id number] MTDD
== END 2020-08-14 13:05 | disposition home or self-care (01) | DRG 441 ==
LOC: BURERS 17:14 → BURMED 19:49
PROVIDERS: ADMIT Family Medicine; ATTEND Family Medicine
DX: K75.0 Abscess of liver (principal); J18.9 Pneumonia, unspecified organism; E87.1 Hypo-osmolality and hyponatremia; C34.90 Malignant neoplasm of unspecified part of unspecified bronchus or lung; C78.7 Secondary malignant neoplasm of liver and intrahepatic bile duct; J90 Pleural effusion, not elsewhere classified; E87.2 Acidosis; Z20.822 Contact with and (suspected) exposure to COVID-19; D72.829 Elevated white blood cell count, unspecified; I10 Essential (primary) hypertension; E11.9 Type 2 diabetes mellitus without complications; Z79.51 Long term (current) use of inhaled steroids; Z92.21 Personal history of antineoplastic chemotherapy; Z85.118 Personal history of other malignant neoplasm of bronchus and lung; Z85.05 Personal history of malignant neoplasm of liver; Z92.3 Personal history of irradiation; Z79.899 Other long term (current) drug therapy; Z79.84 Long term (current) use of oral hypoglycemic drugs
CPT/HCPCS: 0240U; 36415; 36416; 71275; 80053; 80202; 81003; 81015; 83605; 84484; 85025; 85610; 87040; 93005; 96365; 96367; 96375; J1650; J1815; J2270; J2405; J2543; J3370; J3490; J7050; Q9967

== ENCOUNTER 2020-08-31 17:34 | Emergency (ER) | payer OTHER, MEDICARE ==
[2020-08-31] MEDS ORDERED: Mag-Al Plus 1200 MG/1200 MG/120 MG/30 ML UDCUP ONE (18:29)
[2020-08-31] MEDS ORDERED: Lidocaine Viscous Sol 2% 15 ml UD Cup ONE (18:29)
[2020-08-31 18:53] LABS: #Basophils 0.1 thou/uL (0.0-0.2); #Eosinphils 0.4 thou/uL (0.0-0.7); #Lymphocytes 2.8 thou/uL (1.20-3.40); #Monocytes 0.6 thou/uL (0.11-0.59); #Neutrophils 6.6 thou/uL (1.40-6.50); %Basophils 1.3 % (0.0-1.0); %Eosinophils 3.6 % (0.0-10.0); %Lymphocytes 26.5 % (21.0-51.0); %Monocytes 5.7 % (0.0-10.0); Hemoglobin 13.2 g/dL (12.0-16.0); Mean Corpuscular HGB CONC 32.2 g/dL (32.0-36.0); Mean Corpuscular Hemoglobin 29.6 pg (27.0-31.0); Mean Corpuscular Volume 91.9 fL (78.0-98.0); Mean Platelet Volume 5.5 fL (7.4-10.4); Platelet Count 261 thou/uL (130-400); Red Blood Cell (RBC) Count 4.46 mill/uL (4.20-5.40); White Blood Cell (WBC) Count 10.4 thou/uL (4.8-10.8)
[2020-08-31 19:26] LABS: ALT (SGPT) 21 U/L (8-55); AST (SGOT) 32 U/L (5-34); Albumin 2.5 g/dL (3.4-4.8); Alkaline Phosphatase 280 U/L (40-110); Anion Gap 15 mmol/L (10-20); BUN (Urea Nitrogen) 18 mg/dL (9.8-20.1); Bilirubin, Total 0.5 mg/dL (0.2-1.2); Calc. Creatinine Clearance 0 mL/min (70-130); Calcium 8.6 mg/dL (7.8-10.44); Carbon Dioxide 22 mmol/L (23-31); Chloride 101 mmol/L (98-107); Globulin 7.4 g/dL (2.4-3.5); Glucose 151 mg/dL (80-115); Potassium 4.2 mmol/L (3.5-5.1); Protein, Total 9.9 g/dL (5.8-8.1); Sodium 134 mmol/L (136-145)
[2020-08-31] MEDS ORDERED: Amoxicillin/Potassium Clav 875 MG TAB ONE (20:42)
[2020-08-31] MEDS ORDERED: Azithromycin 250 MG TAB ONE (20:42)
[2020-09-01 13:54] LABS: SARS-CoV-2 PCR by NAA Not Detected (NotDetected)
== END 2020-08-31 21:06 | disposition home or self-care (01) ==
LOC: BURERS 17:34
DX: J18.9 Pneumonia, unspecified organism (principal); J02.9 Acute pharyngitis, unspecified; Z20.822 Contact with and (suspected) exposure to COVID-19; E11.9 Type 2 diabetes mellitus without complications; I10 Essential (primary) hypertension; Z79.84 Long term (current) use of oral hypoglycemic drugs
CPT/HCPCS: 71045; 71275; 80053; 83880; 84484; 85025; 87081; 87430; 87635; 93005; J7620; Q9967; U0003; U0005